=== PATIENT | male | born 1995 | race Caucasian/White ===

== ENCOUNTER → 2024-08-15 14:49 | Outpatient (REF) | payer BC, SELFPAY | LOC: RCS 14:49 | PROVIDERS: ATTENDING PHYSICIAN Physician Assistant; FAMILY PHYSICIAN Family Medicine | DX: I35.1 Nonrheumatic aortic (valve) insufficiency (principal); Q23.1 Congenital insufficiency of aortic valve; Q25.1 Coarctation of aorta | CPT/HCPCS: 93306 ==

== ENCOUNTER → 2025-05-06 11:17 | Outpatient (REF) | payer OTHER, SELFPAY | LOC: HWRAD 11:17 | PROVIDERS: ATTENDING PHYSICIAN Family Medicine | DX: T14.8XXA Other injury of unspecified body region, initial encounter (principal) | CPT/HCPCS: 73090 ==